=== PATIENT | female | born 1970 | race Caucasian/White ===

== ENCOUNTER 2017-02-13 00:54 | Observation (INO) | payer BC ==
[~2017-02-13] VITALS: Ht 167.6 cm; Wt 53.1 kg
[2017-02-13 01:09] VITALS: BP_SYST 148
[2017-02-13] MEDS ORDERED: ASPIRIN 325 MG TABLET PO ONE (01:30)
[2017-02-13] MEDS: NITROGLYCERIN 0.4 MG TAB.SUBL SL ONE ×2 (01:42→01:45)
[2017-02-13 01:50] LABS: BASOPHILS # (AUTO) 0.1 K/uL (0.0-0.2); BASOPHILS % (AUTO) 0.8 % (0.0-2.0); EOSINOPHILS # (AUTO) 0.1 K/uL (0.0-0.4); EOSINOPHILS % (AUTO) 0.5 % (0.0-4.0); HEMATOCRIT 46.3 % (36-48); HEMOGLOBIN 15.1 g/dL (12.0-16.0); LYMPHOCYTES # (AUTO) 1.2 K/uL (1.0-5.5); LYMPHOCYTES % (AUTO) 11.1 % (20.5-51.5); MEAN CORPUSCULAR HEMOGLOBIN 26 pg (27-31); MEAN CORPUSCULAR HGB CONC 33 % (32-36); MEAN CORPUSCULAR VOLUME 78 fL (79.0-98.0); MONOCYTES # (AUTO) 0.4 K/uL (0.0-1.0); MONOCYTES % (AUTO) 3.8 % (1.7-9.3); NEUTROPHILS # (AUTO) 8.9 K/uL (1.8-7.7); NEUTROPHILS % (AUTO) 83.8 % (40.0-70.0); PLATELET COUNT (AUTO) 249 K/uL (130-430); RED BLOOD CELL COUNT(AUTO) 5.93 MIL/uL (4.2-6.2); RED CELL DISTRIBUTION WIDTH 14.5 % (9.0-15.0); WHITE BLOOD COUNT (AUTO) 10.7 K/uL (4.8-10.8)
[2017-02-13] MEDS ORDERED: LEVO125T PO (01:51)
[2017-02-13] MEDS ORDERED: HYDR12.585 PO (01:51)
[2017-02-13 01:58] LABS: CALCIUM 9.4 mg/dL (8.4-11.0); CREATININE 1.04 mg/dL (0.55-1.30); POTASSIUM 3.7 mmol/L (3.5-5.1)
[2017-02-13 02:08] LABS: PROTHROMBIN TIME 10.9 SECS (9.5-12.5)
[2017-02-13 02:09] LABS: ALBUMIN 4.1 g/dL (3.4-4.8); TOTAL BILIRUBIN 0.4 mg/dL (0.0-1.0)
[2017-02-13] MEDS ORDERED: 0.45% NACL 1,000 ML IV SCH (02:48)
[2017-02-13] MEDS ORDERED: LOSA1TAB36 PO (02:49)
[2017-02-13] MEDS ORDERED: MORPHINE 2 MG/ML INJ. SYRINGE IVP PRN (03:00)
[2017-02-13] MEDS ORDERED: ACETAMINOPHEN 325 MG TABLET PO PRN (03:00)
[2017-02-13] MEDS ORDERED: IOHEXOL 350 mgI/mL, 150 ML INFUS..BTL IV ONE (03:08)
[2017-02-13 03:25] VITALS: BP_SYST 134
[2017-02-13] MEDS ORDERED: LEVOTHYROXINE SODIUM 0.125 MG TABLET PO SCH (07:00)
[2017-02-13 08:00] VITALS: BP_SYST 135
[2017-02-13] MEDS ORDERED: HYDROCHLOROTHIAZIDE 12.5 MG CAPSULE (HCTZ) PO SCH (09:00)
[2017-02-13] MEDS ORDERED: LOSARTAN POTASSIUM 50 MG TABLET (COZAAR) PO SCH (09:00)
[2017-02-13 12:36] VITALS: BP_SYST 136
[2017-02-13 15:16] VITALS: BP_SYST 132; BP_SYST 136
[2017-02-13 16:38] VITALS: BP_SYST 132
== END 2017-02-13 17:18 | disposition home or self-care (01) ==
LOC: SED 00:54 → STU 02:48
PROVIDERS: ADMIT Internal Medicine; ATTEND Internal Medicine
DX: R07.89 Other chest pain (principal); I10 Essential (primary) hypertension; E03.9 Hypothyroidism, unspecified
CPT/HCPCS: 36415; 71010; 71275; 80053; 84443; 84484; 85025; 85610; 85730; 93005; 93306; 96360; 96361; 99285; G0378; Q9967